=== PATIENT | female | born 1965 | race Caucasian/White ===

== ENCOUNTER 2017-01-20 13:45 | Emergency (ER) | payer OTHER, MEDICAID ==
[~2017-01-20] VITALS: Ht 160 cm; Wt 68.0 kg
[~2017-01-20 13:45] MED LIST: BUPR100T14 PO; FER325T PO; GEM600T PO; LACT10SO PO; LAMO100T44 PO; LITH300C3 PO; PANT1INJ3 PO; QUET100T46 PO; THYR60TA PO; TRAZ100T2 PO; VENL150C58 PO
[2017-01-20 14:18] LABS: Basophils # (auto) 0 uL; Basophils % (auto) 0.4 % (0.0-2.0); Eosinophils # (auto) 0.2 uL; Eosinophils % (auto) 4.4 % (0.0-7.0); Hematocrit 32.9 % (36.0-46.0); Hemoglobin 10.9 g/dL (12.2-16.2); Lymphocytes # (auto) 1.4 uL; Lymphocytes % (auto) 33.6 % (10.0-50.0); Mean Corpuscular Hemoglobin 30.7 pg (28.0-32.0); Mean Corpuscular Volume 93.1 fL (80.0-100.0); Mean Platelet Volume 8.3 fL (7.4-10.4); Monocytes # (auto) 0.5 uL; Monocytes % (auto) 11.8 % (0.0-12.0); Neutrophils # (auto) 2.1 uL; Neutrophils % (auto) 49.8 % (37.0-80.0); Platelet Count (auto) 143 10^3/uL (140-450); White Blood Cell 4.3 10^3/uL (4.4-10.8)
[2017-01-20 14:45] LABS: Albumin 2.9 g/dL (3.4-5.0); BUN/Creatinine Ratio 13.5; Bilirubin, Total 0.3 mg/dL (0.2-1.0); Calcium 8.5 mg/dL (8.5-10.1); Potassium 4.4 mmol/L (3.5-5.1); Total Protein 5.6 g/dL (6.4-8.2)
[2017-01-20] MEDS ORDERED: HYDROmorphone HCL 2 MG/ML VL IV ONE (15:15)
[2017-01-20] MEDS ORDERED: LIDOCAINE VISCOUS 2% 15ML UD PO ONE (15:15)
[2017-01-20] MEDS ORDERED: PANTOPRAZOLE SODIUM 40 MG/10 ML VIAL IV ONE (15:15)
[2017-01-20] MEDS ORDERED: DONNATAL 5ml ORAL Elix (BELLADONNA ALK-PHENOBARB) PO ONE (15:15)
[2017-01-20] MEDS ORDERED: SODIUM CHLORIDE 0.9% 1,000 ML IV ONE (15:15)
[2017-01-20] MEDS ORDERED: ONDANSETRON HCL 4 MG/2 ML VIAL IV ONE (15:15)
[2017-01-20] MEDS ORDERED: ALUM & MAG HYDROX-SIMETH LIQ(MAALOX) 30 ML PO ONE (15:15)
[2017-01-20 15:19] LABS: Amylase 56 U/L (25-115)
[2017-01-20] MEDS ORDERED: FLEET ENEMA(ADULT) 135 ML PR ONE (17:30)
[2017-01-20 18:35] VITALS: BP 104/78
== END 2017-01-20 19:38 | disposition home or self-care (01) ==
LOC: EDBD 13:45 → EDUNIT# 13:45 → ER 13:51
DX: R10.13 Epigastric pain (principal); K59.00 Constipation, unspecified; F11.10 Opioid abuse, uncomplicated; E03.9 Hypothyroidism, unspecified; G89.29 Other chronic pain; M54.9 Dorsalgia, unspecified; F17.210 Nicotine dependence, cigarettes, uncomplicated; F12.10 Cannabis abuse, uncomplicated; K21.9 Gastro-esophageal reflux disease without esophagitis; E78.5 Hyperlipidemia, unspecified; E07.9 Disorder of thyroid, unspecified; Z90.49 Acquired absence of other specified parts of digestive tract
CPT/HCPCS: 36415; 74176; 80053; 82150; 83690; 85025; 96361; 96374; 96375; 99285; C9113; J1170; J2405; J7030

== ENCOUNTER 2017-01-22 15:45 | Emergency (ER) | payer OTHER, MEDICAID ==
[~2017-01-22] VITALS: Ht 157.5 cm; Wt 63.5 kg
[2017-01-22 19:45] LABS: Basophils # (auto) 0 uL; Basophils % (auto) 0.6 % (0.0-2.0); Eosinophils # (auto) 0.2 uL; Hematocrit 35.5 % (36.0-46.0); Hemoglobin 11.8 g/dL (12.2-16.2); Lymphocytes % (auto) 44.7 % (10.0-50.0); Mean Corpuscular Hemoglobin 31.2 pg (28.0-32.0); Mean Corpuscular Hgb Conc. 33.2 g/dL (32.0-36.0); Mean Corpuscular Volume 93.8 fL (80.0-100.0); Mean Platelet Volume 8.6 fL (7.4-10.4); Monocytes # (auto) 0.4 uL; Monocytes % (auto) 8.5 % (0.0-12.0); Neutrophils # (auto) 1.9 uL; Neutrophils % (auto) 42.2 % (37.0-80.0); Platelet Count (auto) 171 10^3/uL (140-450); Red Cell Distribution Width 15.1 % (11.6-16.0); White Blood Cell 4.5 10^3/uL (4.4-10.8)
[2017-01-22 19:57] LABS: Albumin 3.3 g/dL (3.4-5.0); BUN/Creatinine Ratio 16.1; Bilirubin, Total 0.3 mg/dL (0.2-1.0); Potassium 4.4 mmol/L (3.5-5.1); Total Protein 6.4 g/dL (6.4-8.2)
[2017-01-23] MEDS ORDERED: MAGNESIUM CITRATE SOLUTION 300 ML BTL PO ONE (01:00)
[2017-01-23] MEDS ORDERED: LACTULOSE 20Gm/30ML SOLN PO ONE (01:00)
[2017-01-23 02:45] VITALS: BP 135/75
== END 2017-01-23 02:51 | disposition home or self-care (01) ==
LOC: ER 15:45
DX: K59.00 Constipation, unspecified (principal); R10.9 Unspecified abdominal pain; K21.9 Gastro-esophageal reflux disease without esophagitis; E78.5 Hyperlipidemia, unspecified; E07.9 Disorder of thyroid, unspecified; Z90.49 Acquired absence of other specified parts of digestive tract; F17.210 Nicotine dependence, cigarettes, uncomplicated; F12.10 Cannabis abuse, uncomplicated
CPT/HCPCS: 36415; 74000; 80053; 82150; 83690; 85025